=== PATIENT | female | born 1980 | race Caucasian/White ===

== ENCOUNTER → 2018-05-20 | Emergency (ER) | payer OTHER ==
[~2018-05-20] VITALS: Ht 157.5 cm; Wt 48.1 kg
[~2018-05-20] MED LIST: MOBIC15 MG PO; ORPHENADRINE C100 MG PO
== END | disposition home or self-care (01) ==
LOC: ER 22:17
DX: S13.4XXA Sprain of ligaments of cervical spine, initial encounter (principal); M62.838 Other muscle spasm; V49.9XXA Car occupant (driver) (passenger) injured in unspecified traffic accident, initial encounter; Y93.89 Activity, other specified; Y92.488 Other paved roadways as the place of occurrence of the external cause; Y99.8 Other external cause status

== ENCOUNTER 2022-06-16 10:28 | Emergency (ER) | payer OTHER ==
[~2022-06-16] VITALS: Ht 157.5 cm; Wt 55.8 kg
[2022-06-16] MEDS ORDERED: METAXALONE800 MG PO (12:43)
[2022-06-16] MEDS ORDERED: MEDROLPACK PO (12:43)
[2022-06-16] MEDS ORDERED: CELEBREX200MG PO (12:43)
[2022-06-16] MEDS ORDERED: TYLENOL ARTHRI650 MG PO (12:43)
== END 2022-06-16 12:52 | disposition home or self-care (01) ==
LOC: ER 10:28
DX: M75.31 Calcific tendinitis of right shoulder (principal)

== ENCOUNTER 2022-06-16 13:16 | Outpatient (CLI) | payer OTHER ==
[~2022-06-16 13:16] MED LIST changes: +CELEBREX200MG PO; +MEDROLPACK PO; +METAXALONE800 MG PO; +TYLENOL ARTHRI650 MG PO
== END 2022-06-16 13:28 | disposition home or self-care (01) ==
LOC: MRI 13:16
PROVIDERS: ATTEND Chiropractor
DX: M25.511 Pain in right shoulder (principal); M75.121 Complete rotator cuff tear or rupture of right shoulder, not specified as traumatic
CPT/HCPCS: 73221